=== PATIENT | female | born 1945 | race Caucasian/White ===

== ENCOUNTER → 2022-08-14 12:57 | Outpatient (BNVA) | payer MEDICARE, SELFPAY | PROVIDERS: Family Provider Family Medicine; PCP Family Medicine; Visit Provider Internal Medicine | DX: Z01.818 Encounter for other preprocedural examination (principal); I10 Essential (primary) hypertension; Z87.891 Personal history of nicotine dependence | CPT/HCPCS: 93005; 99203; 99204 ==

== ENCOUNTER 2024-06-12 14:14 | Emergency (ER) | payer MEDICARE, SELFPAY ==
[2024-06-12] VITALS (7 sets, daily range): BP systolic 114–163; BP diastolic 72–87; PULSE 79–113; RESP 16–17; TEMP 36.6; O2SAT 91–100; BMI 25.9
[2024-06-12] MEDS: sodium chloride 0.9% 1,000 ML 999 ML IV ×2 (16:04→17:25)
[2024-06-12] MEDS: ondansetron 2 mg/ML SDV 2 mL 8 MG IVP (16:05)
--- NOTE | 2024-06-12 16:12 | ED_ITS ---
HPI - Weakness 2 General: Chief complaint: Weakness Stated complaint: uti, n/v Time Seen by Provider: 06/12/24 15:23 History of Present Illness: 78-year-old female with a history of hyp ertension who presents to the emergency room with nausea and vomiting. Apparently she was treated for UTI couple of weeks ago and got better. Then she started getting sick again so she went back to the hospital and they said she had a UTI again. They sent her home with Levaquin. She took her first dose. She did this last night and they report she vomited all night. She has no focal abdominal tenderness. No altered mental status. No fevers. Review of Systems 2 Narrative: Constitutional symptoms: Negative except as documented in HPI. Skin symptoms: Negative except as documented in HPI. Eye symptoms: Negative except as documented in HPI. ENMT symptoms: Negative except as documented in HPI. Respiratory symptoms: Negative except as documented in HPI. Cardiovascular symptoms: Negative except as documented in HPI. Gastrointestinal symptoms: Negative except as documented in HPI. Genitourinary symptoms: Negative except as documented in HPI. Musculoskeletal symptoms: Negative except as documented in HPI. Neurologic symptoms: Negative except as documented in HPI. Psychiatric symptoms: Negative except as documented in HPI. Endocrine symptoms: Negative except as documented in HPI. PFSH ED 2 PFSH: Family History Father FH: coronary artery bypass surgery Social History Smoking and tobacco/nicotine status: former use of tobacco/nicotine Alcohol intake: current Physical Exam 2 Narrative: EXAM NARRATIVE: General: Alert, no acute distress. Skin: Warm, dry. Head: Normocephalic, atraumatic. Neck: Supple, trachea midline. Eye: Extraocular movements are intact. Ears, nose, mouth and throat: Dry oral mucosa Cardiovascular: Regular, Normal peripheral perfusion. Respiratory: Lungs are clear to auscultation, respirations are non-labored, breath sounds are equal, Symmetrical chest wall expansion. Gastrointestinal: Soft, Nontender, Non distended Musculoskeletal: Normal ROM, no deformity. Neurological: Alert and oriented, No focal neurological deficit observed. Psychiatric: Cooperative, appropriate mood & affect. Course 2 Vital Signs: Vital signs: Vital Signs Temperature 97.8 F 06/12/24 14:18 Pulse Rate 91 06/12/24 16:07 Respiratory Rate 17 06/12/24 16:07 Blood Pressure 115/72 06/12/24 16:07 Pulse Oximetry 98 06/12/24 16:07 Oxygen Delivery Me thod Room Air 06/12/24 16:07 MDM - Weakness Medical Decision Making Medical decision making: Differential diagnosis for this patient with nausea and vomiting including but not limited to and based on the above HPI, review of systems and physical exam: Urinary tract infection. Appendicitis. Cholecystis. colitis. small bowel obstruction. crohn's flare. pancreatitis. gastritis. peptic ulcer. cyclic vomiting. Viral illness. Influenza. COVID. - Workup - labwork and imaging ordered to evaluate, rule in and rule out above pathologies. Lab Review: Laboratory results were reviewed and interpreted by myself the emergency room physician. Patient does not have a leukocytosis. She does have mild elevation in her BUN/creatinine at 17 and 1.1. Sodium is little bit low at 129. All this could indicate that she is a bit dehydrated. She is received 2 L of fluid here. Urinalysis does indicate that she has a urinary tract infection. Nitrate negative but 5-10 whites and 1+ bacteria. I reviewed the patient's medical record. Reexamination: Patient says she feels quite a bit better. She is tolerating fluids. Patient remained stable. No increased work of breathing. No altered mental status. No focal motor deficits. Assessment and plan: Urinary tract infection Nausea and vomiting Dehydration ? 2 L normal saline bolus, IV Zofran and IV Rocephin. Changed her antibiotics to Omnicef. - Discharged home - Discussed plan with patient. Answered any questions. - Evaluation and treatment of this problem were appropriate in the emergency setting. Lab Data 06/12/24 16:05 06/12/24 16:05 Laboratory Results WBC 4.14 10^3/uL (3.29-11.43) 06/12/24 16:05 RBC 4.91 10^6/uL (3.85-5.65) 06/12/24 16:05 Hgb 15.00 g/dL (11.27-16.99) 06/12/24 16:05 Hct 45.1 % (36-47) 06/12/24 16:05 MCV 91.9 fl (85-98) 06/12/24 16:05 MCH 30.5 pg (27-33) 06/12/24 16:05 MCHC 33.3 g/dL (30-55) 06/12/24 16:05 RDW 13.3 % (12.1-15.1) 06/12/24 16:05 Plt Count 171 10^3/cmm (157-399) 06/12/24 16:05 MPV 9.9 fL (7.4-10.4) 06/12/24 16:05 Neut % (Auto) 77.7 % 06/12/24 16:05 Lymph % (Auto) 12.1 % 06/12/24 16:05 Fisher % (Auto) 9.2 % 06/12/24 16:05 Eos % (Auto) 0.0 % 06/12/24 16:05 Baso % (Auto) 0.5 % 06/12/24 16:05 Neut # (Auto) 3.22 10^3/uL (1.8-7.7) 06/12/24 16:05 Lymph # (Auto) 0.5 10^3/uL (0.8-4.8) L 06/12/24 16:05 Fisher # (Auto) 0.4 10^3/uL (0.2-0.9) 06/12/24 16:05 Eos # (Auto) 0.0 10^3/uL (0.0-0.8) 06/12/24 16:05 Baso # (Auto) 0.0 10^3/uL (0.0-0.1) 06/12/24 16:05 Nucleated RBC % (auto) 0 % 06/12/24 16:05 Nucleated RBCs # 0.0 /100WBC 06/12/24 16:05 Sodium 129 mmol/L (136-145) L 06/12/24 16:05 Potassium 4.5 mmol/L (3.5-5.1) 06/12/24 16:05 Chloride 92 mmol/L (98-107) L 06/12/24 16:05 Carbon Dioxide 23 mmol/L (22-29) 06/12/24 16:05 Anion Gap 18.5 (5-19) 06/12/24 16:05 BUN 17 mg/dL (8-23) 06/12/24 16:05 Creatinine 1.1 mg/dL (0.5-0.9) H 06/12/24 16:05 GFR Calculation Not Reportable 06/12/24 16:05 Glucose 123 mg/dL (65-115) H 06/12/24 16:05 Calculated Osmolality 271 mOsm/kg (285-295) L 06/12/24 16:05 Lactic Acid 1.4 mmol/L (0.5-2.2) 06/12/24 16:05 Calcium 9.3 mg/dL (8.5-10.5) 06/12/24 16:05 Total Bilirubin 1.0 mg/dL (0.15-1.2) 06/12/24 16:05 AST 117 U/L (0-32) H 06/12/24 16:05 ALT 121 U/L (0-33) H 06/12/24 16:05 Alkaline Phosphatase 277 U/L (35-105) H 06/12/24 16:05 C-Reactive Protein 44.5 mg/L (0.0-4.9) H 06/12/24 16:05 Total Protein 7.5 g/dL (6.6-8.7) 06/12/24 16:05 Albumin 3.8 g/dL (3.5-5.2) 06/12/24 16:05 Globulin 3.7 g/dL (1.3-4.6) 06/12/24 16:05 Lipase 20 U/L (13-60) 06/12/24 16:05 Procalcitonin 0.81 ng/mL (0-0.5) H 06/12/24 16:05 Urine Color Yellow (Yellow) 06/12/24 18:32 Urine Appearance Clear (CLEAR) 06/12/24 18:32 Urine pH 6.5 (5-7) 06/12/24 18:32 Ur Specific [place] 1.015 (1.005-1.030) 06/12/24 18:32 Urine Protein 1+ (Negative) H 06/12/24 18:32 Urine Glucose (UA) Norm (Normal) 06/12/24 18:32 Urine Ketones 1+ (Negative) H 06/12/24 18:32 Urine Blood Trace (Negative) H 06/12/24 18:32 Urine Nitrate Negative (Negative) 06/12/24 18:32 Urine Bilirubin 1+ (Negative) H 06/12/24 18:32 Urine Urobilinogen 4 mg/dL (Negative) H 06/12/24 18:32 Ur Leukocyte Esterase Trace (Negative) H 06/12/24 18:32 Urine RBC 0-4 /hpf (0-2) H 06/12/24 18:32 Urine WBC 5-10 /hpf (0-5) H 06/12/24 18:32 Ur Squamous Epith Cells 0-4 /hpf (0-5) H 06/12/24 18:32 Amorphous Sediment Not Reportable 06/12/24 18:32 Urine Bacteria 1+ /hpf (NONE) H 06/12/24 18:32 Urine Mucus 1+ /hpf 06/12/24 18:32 No radiology studies performed this visit Discharge Plan Discharge Patient Disposition: Home Clinical Impression: Urinary tract infection, Dehydration, Nausea and vomiting Condition: Stable Prescriptions: New ondansetron 8 mg tablet,disintegrating 8 mg PO .q6 PRN (Reason: nausea and vomiting) Qty: 14 0RF cefdinir 300 mg capsule 300 mg PO BID 7 Days Qty: 14 0RF No Action magnesium oxide 400 mg magnesium tablet 400 mg PO DAILY multivitamin [Daily-Vipul] Tablet 1 tab PO DAILY ibuprofen [Motrin IB] 200 mg tablet 600 mg PO Q8H PRN phentermine 37.5 mg capsule 37.5 mg PO BID PRN Rx Instructions: must administer 30 minutes before or 1-2 hours after breakfast metoprolol tartrate 25 mg tablet 12.5 mg PO BID Qty: 90 3RF Discharge Orders: Discharge ED (Routine); Ordered 06/12/24 Ordered By: Meghan Escalante Referrals: Benjie Ordonez Jr, MD [Family Provider] - 1-3 days (Please call for an appointment) Anahi Salinas DO [Primary Care Provider] - Discharge Diet: Advance as tolerated Discharge Activity: Increase activity as tolerated Patient Instructions: Urinary Tract Infection in Women (ED) Activity Restrictions/Additional Instructions: Thank you for choosing [facility] for your healthcare needs today. Please realize this is an emergency room and that we are providing you with a medical screening exam and this may not be complete and all inclusive of all the testing and or work up that you may need to determine your ailment or severity of your illness. You have been screened and evaluated and felt safe for discharge. Health conditions do change or evolve sometimes and as such it is important that you follow up with your Primary Doctor to be re checked, 3-5 days is a general good time frame for follow up. You are always welcome to return to the ED for re assessment if your symptoms are worsening or you have new concerns Coding Level of Care Code ED Chemist Internship for Cameron Venegas
[2024-06-12 16:19] LABS: Basophils % 0.5 %; Hematocrit 45.1 % (36-47); Lymphocytes # 0.5 10^3/uL (0.8-4.8); Lymphocytes % 12.1 %; Mean Corpuscular HGB Conc 33.3 g/dL (30-55); Mean Corpuscular Hemoglobin 30.5 pg (27-33); Mean Corpuscular Volume 91.9 fl (85-98); Mean Platelet Volume 9.9 fL (7.4-10.4); Monocytes # 0.4 10^3/uL (0.2-0.9); Monocytes % 9.2 %; Neutrophils # 3.22 10^3/uL (1.8-7.7); Neutrophils % 77.7 %; Nucleated Red Blood Cells % 0 %; Platelet Count 171 10^3/cmm (157-399); Red Blood Count 4.91 10^6/uL (3.85-5.65); Red Cell Distribution Width 13.3 % (12.1-15.1); White Blood Count 4.14 10^3/uL (3.29-11.43)
[2024-06-12 16:33] LABS: Alanine Aminotransferase 121 U/L (0-33); Albumin Level 3.8 g/dL (3.5-5.2); Alkaline Phosphatase 277 U/L (35-105); Anion Gap 18.5 (5-19); Aspartate Amino Transferase 117 U/L (0-32); Blood Urea Nitrogen 17 mg/dL (8-23); C Reactive Protein 44.5 mg/L (0.0-4.9); Calcium 9.3 mg/dL (8.5-10.5); Carbon Dioxide 23 mmol/L (22-29); Chloride 92 mmol/L (98-107); Creatinine Clr Calc Pharmacy 37.3869; Globulin 3.7 g/dL (1.3-4.6); Glucose 123 mg/dL (65-115); Lactic Sepsis W/Reflex 1.4 mmol/L (0.5-2.2); Lipase 20 U/L (13-60); Osmolality Calculated 271 mOsm/kg (285-295); Potassium 4.5 mmol/L (3.5-5.1); Sodium 129 mmol/L (136-145); Total Protein 7.5 g/dL (6.6-8.7)
[2024-06-12 16:39] LABS: Procalcitonin 0.81 ng/mL (0-0.5)
[2024-06-12 18:57] LABS: Bilirubin Urine 1+ (Negative); Blood Urine Trace (Negative); Glucose Urine UA Norm (Normal); Ketones Urine 1+ (Negative); Leukocyte Esterase Urine Trace (Negative); Nitrate Urine Negative (Negative); Protein Urine 1+ (Negative); Specific Gravity, Urine 1.015 (1.005-1.030); Urine Appearance Clear (CLEAR); Urine Color Yellow (Yellow); Urobilinogen Urine 4 mg/dL (Negative); pH Urine 6.5 (5-7)
[2024-06-12 18:58] LABS: Bacteria Urine 1+ /hpf; Mucus Urine 1+ /hpf; RBC Urine 0-4 /hpf (0-2); Squamous Epithelial Cell Urine 0-4 /hpf (0-5)
[2024-06-12] MEDS: cefTRIAXone 1,000 mg SDV 1000 MG IVP (20:07)
== END 2024-06-12 20:54 | disposition home or self-care (01) ==
PROVIDERS: Emergency Provider Emergency Medicine; Family Provider Family Medicine; PCP Family Medicine
DX: N39.0 Urinary tract infection, site not specified (principal); R11.2 Nausea with vomiting, unspecified; E86.0 Dehydration; Z87.891 Personal history of nicotine dependence
CPT/HCPCS: 80053; 81001; 83605; 83690; 84145; 85025; 86140; 87040; 96361; 96374; 96375; 99284; J0696; J2405; J7030

== ENCOUNTER 2024-06-14 20:31 | Inpatient (IN) | payer MEDICARE, SELFPAY ==
[2024-06-14 20:32] VITALS: BP 171/105; PULSE 105; RESP 16; TEMP 37; O2SAT 96; BMI 30.1
[2024-06-14 21:12] LABS: Bilirubin Urine Negative (Negative); Blood Urine Negative (Negative); Glucose Urine UA Negative (Normal); Ketones Urine Trace (Negative); Leukocyte Esterase Urine Negative (Negative); Nitrate Urine Negative (Negative); Protein Urine 2+ (Negative); Specific Gravity, Urine 1.014 (1.005-1.030); Urine Appearance Clear (CLEAR); Urine Color Dark Yellow (Yellow)
[2024-06-14 21:17] LABS: Bacteria Urine None Seen /hpf; Hyaline Casts Urine 4.11 /lpf; RBC Urine 0-2 /hpf (0-2); Squamous Epithelial Cell Urine 0-5 /hpf (0-5); WBC Urine 0-5 /hpf (0-5)
[2024-06-14 21:19] LABS: Amphetamines Screen Urine Positive (Negative); Barbiturates Screen Urine Negative (Negative); Benzodiazepines Screen Urine Negative (Negative); Cocaine Screen Urine Negative (Negative); Opiate Screen Urine Negative (Negative); PCP Screen Urine Negative (Negative); THC Screen Urine Negative (Negative)
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
--- NOTE | 2024-06-14 23:02 | CTR_ITS ---
PROCEDURE INFORMATION: Exam: CT Head Without Contrast Exam date and time: 06/14/2024 11:53 PM Age: 78 years old Clinical indication: Altered mental status/memory loss; Confusion or disorientation; Additional info: AMS TECHNIQUE: Imaging protocol: Computed tomography of the head without contrast. Radiation optimization: All CT scans at this facility use at least one of these dose optimization techniques: automated exposure control; mA and/or kV adjustment per patient size (includes targeted exams where dose is matched to clinical indication); or iterative reconstruction. COMPARISON: No relevant prior studies available. RADIATION DOSE METRICS: Total DLP (mGy-cm): 941.38 FINDINGS: Brain: No acute intracranial hemorrhage or territorial infarction. No mass effect or midline shift. 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 Cerebral ventricles: No ventriculomegaly. Paranasal sinuses: Visualized sinuses are unremarkable. No fluid levels. Mastoid air cells: Visualized mastoid air cells are well aerated. Bones: Unremarkable. No acute fracture. Soft tissues: Unremarkable. CT/CT head wo con* [id number] IMPRESSION: 1. No acute intracranial findings. 2. 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
--- NOTE | 2024-06-14 23:02 | XRR_ITS ---
PROCEDURE INFORMATION: Exam: XR Chest Exam date and time: 06/14/2024 11:09 PM Age: 78 years old Clinical indication: Other: AMS TECHNIQUE: Imaging protocol: Radiologic exam of the chest. Views: 1 view. COMPARISON: No relevant prior studies available. FINDINGS: Lungs: The lungs are adequately expanded. No focal consolidations or pulmonary edema. Mild left basilar atelectasis. Pleural spaces: Blunting of the bilateral costophrenic angles may represent trace bilateral pleural effusions. No pneumothorax. Heart/Mediastinum: No cardiomegaly. Bones/joints: No acute fractures. Chronic right rib deformities. Degenerative changes of the bilateral shoulders. XR/XR chest 1V portable [id number] IMPRESSION: Mild left basilar atelectasis. Blunting of the bilateral costophrenic angles may represent trace bilateral pleural effusions.
--- NOTE | 2024-06-14 23:02 | ECG_ITS ---
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 Measurements Intervals [place] Rate: 109 P: 38 MI: 154 QRS: -30 QRSD: 97 T: 86 QT: 316 QTc: 427 Interpretive Statements SINUS TACHYCARDIA POSSIBLE LEFT ATRIAL ENLARGEMENT [-0.1mV P-WAVE IN V1/V2] BORDERLINE LEFT AXIS DEVIATION [QRS AXIS < -20] LEFT VENTRICULAR HYPERTROPHY AND ST-T CHANGE [VOLTAGE CRITERIA PLUS ST/T ABNORMALITY] No previous ECG available for comparison Electronically Signed On 06-15-2024 6:28:10 CDT by Pilar Heard M.D. [id number]
[2024-06-14 23:56] LABS: Lactic Sepsis W/Reflex 1.4 mmol/L (0.5-2.2)
[2024-06-15] VITALS (7 sets, daily range): BP systolic 128–182; BP diastolic 73–96; PULSE 83–105; RESP 15–19; TEMP 36.7–37.3; O2SAT 90–96; BMI 30.6
[2024-06-15 00:07] LABS: Thyroid Stimulating Hormone 1.36 uIU/mL (0.27-4.20)
[2024-06-15 00:23] LABS: Acetaminophen < 5.0 ug/mL (10-30); Alanine Aminotransferase 94 U/L (0-33); Albumin Level 3.4 g/dL (3.5-5.2); Alcohol Level < 10 mg/dL (0-10); Alkaline Phosphatase 468 U/L (35-105); Anion Gap 14.6 (5-19); Aspartate Amino Transferase 106 U/L (0-32); Blood Urea Nitrogen 18 mg/dL (8-23); C Reactive Protein 57.9 mg/L (0.0-4.9); Calcium 8.4 mg/dL (8.5-10.5); Carbon Dioxide 22 mmol/L (22-29); Chloride 96 mmol/L (98-107); Creatine Phosphokinase 56 U/L (26-192); Creatinine Clr Calc Pharmacy 32.9533; Globulin 2.9 g/dL (1.3-4.6); Glucose 116 mg/dL (65-115); Magnesium 1.7 mg/dL (1.7-2.3); Osmolality Calculated 271 mOsm/kg (285-295); Phosphorus 2.8 mg/dL (2.5-4.5); Potassium 3.6 mmol/L (3.5-5.1); Salicylate < 0.3 mg/dL (3-10); Sodium 129 mmol/L (136-145); Total Protein 6.3 g/dL (6.6-8.7)
[2024-06-15 00:25] LABS: Basophils % 0.4 %; Lymphocytes # 0.9 10^3/uL (0.8-4.8); Lymphocytes % 33.9 %; Mean Corpuscular HGB Conc 34.9 g/dL (30-55); Mean Corpuscular Hemoglobin 31.2 pg (27-33); Mean Corpuscular Volume 89.6 fl (85-98); Mean Platelet Volume 11.7 fL (7.4-10.4); Monocytes # 0.2 10^3/uL (0.2-0.9); Monocytes % 6.6 %; Neutrophils # 1.51 10^3/uL (1.8-7.7); Neutrophils % 58.7 %; Nucleated Red Blood Cells % 0 %; Platelet Count 85 10^3/cmm (157-399); Red Blood Count 4.13 10^6/uL (3.85-5.65); Red Cell Distribution Width 13.8 % (12.1-15.1); Slide Review Slide Review Perform; White Blood Count 2.57 10^3/uL (3.29-11.43)
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
--- NOTE | 2024-06-15 02:35 | US_ITS ---
WS: [id number] Complete ABDOMINAL ULTRASOUND HISTORY: r/o liver disease COMPARISON: None available. Liver: 12.3 cm in length. Small caliber liver. Surface of the liver is very slightly nodular suggesti ng early changes of cirrhosis. No mass. Portal Vein: Normal hepatopetal flow with monophasic waveform. Gallbladder: Diffuse gallbladder contraction due to nonfasting state. No stones are identified. No sl udge. CBD: 0.6 cm Pancreas: Normal size and echogenicity. Right kidney: 8.1 cm x 5.0 x 4.5 cm. Cortex:1.5 cm. Normal size and echogenicity. No hydronephrosis or mass. Left kidney: 7.6 cm x 4.8 cm x 3.7 cm. Cortex: 1.0 cm. Normal size and echogenicity. No hydronephrosis or mass. Spleen: 10.5 cm. Normal size and echogenicity. Aorta and IVC: Mild atherosclerosis aorta. US/US abdomen complete* [id number] Impression: 1. Contracted gallbladder with wall thickening. Nonfasting examination. No sto anthony identified. 2. Small caliber liver. Surface of the liver is very slightly nodular which ca n be seen with cirrhosis. 3. No renal obstruction.
[2024-06-15] MEDS: sodium chloride 0.9% 1,000 ML 125 ML IV ×2 (02:45→12:09)
[2024-06-15] MEDS: piperacillin-tazobactam 3.375 GM in sodium chloride 0.9% (plus) 50 ML IV ×3 (02:54→19:18)
[2024-06-15 03:35] LABS: INR 0.97 (0.8-1.2)
[2024-06-15 03:44] LABS: Ammonia 25 umol/L (11-51); Lactic Sepsis W/Reflex 1.1 mmol/L (0.5-2.2)
[2024-06-15 03:54] LABS: Anion Gap 14.8 (5-19); Blood Urea Nitrogen 18 mg/dL (8-23); Calcium 8.3 mg/dL (8.5-10.5); Carbon Dioxide 20 mmol/L (22-29); Chloride 98 mmol/L (98-107); Creatinine Clr Calc Pharmacy 39.5877; Glucose 104 mg/dL (65-115); Osmolality Calculated 270 mOsm/kg (285-295); Potassium 3.8 mmol/L (3.5-5.1); Sodium 129 mmol/L (136-145); Thyroid Stimulating Hormone 0.89 uIU/mL (0.27-4.20)
[2024-06-15 04:13] LABS: Hepatitis A Antibody IgM Non-Reactive (Nonreactive); Hepatitis B Core AB, Total Non-Reactive (Nonreactive); Hepatitis B Surface AB < 3.5 (11.5-1000); Hepatitis B Surface Antigen Non-Reactive (Nonreactive)
[2024-06-15 04:13] LABS: Urine Random Sodium 95 mmol/L
[2024-06-15 07:09] LABS: Blood Urea Nitrogen 17 mg/dL (8-23); Calcium 7.9 mg/dL (8.5-10.5); Carbon Dioxide 20 mmol/L (22-29); Chloride 98 mmol/L (98-107); Creatinine Clr Calc Pharmacy 44.2098; Glucose 136 mg/dL (65-115); Osmolality Calculated 272 mOsm/kg (285-295); Sodium 129 mmol/L (136-145)
[2024-06-15 07:15] LABS: Anion Gap 14.6 (5-19); Potassium 3.6 mmol/L (3.5-5.1)
[2024-06-15 09:01] LABS: Hepatitis C Virus Antibody Non-Reactive (Nonreactive)
[2024-06-15] MEDS: vancomycin 750 MG in sodium chloride 0.9% 250 ML 250 MG IV (10:15)
[2024-06-15 11:11] LABS: Hematocrit 35.4 % (36-47); Mean Corpuscular HGB Conc 34.2 g/dL (30-55); Mean Corpuscular Hemoglobin 30.6 pg (27-33); Mean Corpuscular Volume 89.6 fl (85-98); Platelet Count 75 10^3/cmm (157-399); Red Blood Count 3.95 10^6/uL (3.85-5.65); Red Cell Distribution Width 13.8 % (12.1-15.1); White Blood Count 3.01 10^3/uL (3.29-11.43)
[2024-06-15 11:26] LABS: Gamma Glutamyl Transferase 406 U/L (5-36)
[2024-06-15 11:38] LABS: Estmated Average Glucose 111; Hemoglobin A1C 5.5 % (4.0-6.0)
[2024-06-15 11:47] LABS: HIV 1 & 2 Antibody Non-Reactive (Non-Reactiv); HIV 1 & 2 Antigen Non-Reactive (Non-Reactiv)
[2024-06-15 11:51] LABS: Total Cells Counted 100 (0-100)
[2024-06-15 12:01] LABS: Absolute Neutrophil 2.1 10^3/cmm (1.4-6.5); Absolute Segmented Neutrophil 1.6 10/cmm (1.6-7.1); Band Neutrophils Absolute 0.5 10^3/cmm (0.0-1.2); Eosinophils 0 %; Lymphocytes 20 %; Lymphocytes Absolute 0.8 10^3/cmm (1.2-3.4); Monocytes Absolute 0.1 10^3/cmm (0.1-0.6); Platelet Estimate Decreased (Normal); Segmented Neutrophils 53 %
[2024-06-15 12:02] LABS: Smudge Cells 1+
[2024-06-15 12:40] LABS: Anion Gap 14.8 (5-19); Blood Urea Nitrogen 14 mg/dL (8-23); Carbon Dioxide 19 mmol/L (22-29); Chloride 100 mmol/L (98-107); Creatinine Clr Calc Pharmacy 40.1907; Glucose 97 mg/dL (65-115); Osmolality Calculated 270 mOsm/kg (285-295); Potassium 3.8 mmol/L (3.5-5.1); Sodium 130 mmol/L (136-145)
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
[2024-06-15 14:51] LABS: LAB Peripheral Smear Sent for Review
[2024-06-15 15:16] LABS: Anion Gap 13.5 (5-19); Blood Urea Nitrogen 14 mg/dL (8-23); Calcium 7.8 mg/dL (8.5-10.5); Carbon Dioxide 20 mmol/L (22-29); Chloride 99 mmol/L (98-107); Creatinine Clr Calc Pharmacy 44.2098; Glucose 119 mg/dL (65-115); Osmolality Calculated 270 mOsm/kg (285-295); Potassium 3.5 mmol/L (3.5-5.1); Sodium 129 mmol/L (136-145)
[2024-06-15 15:32] LABS: Folate Level 13.6 ng/mL (4.8-37.3)
[2024-06-15 15:33] LABS: Vitamin B12 997 pg/mL (232-1245)
[2024-06-15 18:49] LABS: Anion Gap 12.3 (5-19); Blood Urea Nitrogen 13 mg/dL (8-23); Calcium 7.8 mg/dL (8.5-10.5); Carbon Dioxide 21 mmol/L (22-29); Chloride 103 mmol/L (98-107); Creatinine Clr Calc Pharmacy 44.2098; Glucose 136 mg/dL (65-115); Osmolality Calculated 278 mOsm/kg (285-295); Potassium 3.3 mmol/L (3.5-5.1); Sodium 133 mmol/L (136-145)
[2024-06-15] MEDS: sodium chloride 0.9% 1,000 ML 75 ML IV (21:41)
[2024-06-15 23:07] LABS: Blood Urea Nitrogen 12 mg/dL (8-23); Calcium 7.7 mg/dL (8.5-10.5); Carbon Dioxide 21 mmol/L (22-29); Chloride 105 mmol/L (98-107); Creatinine Clr Calc Pharmacy 44.2098; Glucose 107 mg/dL (65-115); Osmolality Calculated 282 mOsm/kg (285-295); Sodium 136 mmol/L (136-145)
[2024-06-16] VITALS (9 sets, daily range): BP systolic 133–165; BP diastolic 73–89; PULSE 70–93; RESP 14–19; TEMP 36.5–37.3; O2SAT 90–93
[2024-06-16] MEDS: piperacillin-tazobactam 3.375 GM in sodium chloride 0.9% (plus) 50 ML IV ×3 (04:13→20:48)
[2024-06-16 04:54] LABS: Basophils % 0.5 %; Eosinophils % 0.3 %; Hematocrit 32.4 % (36-47); Mean Corpuscular HGB Conc 33.3 g/dL (30-55); Mean Corpuscular Hemoglobin 30.7 pg (27-33); Mean Platelet Volume 11.8 fL (7.4-10.4); Monocytes # 0.3 10^3/uL (0.2-0.9); Monocytes % 6.8 %; Neutrophils # 1.48 10^3/uL (1.8-7.7); Neutrophils % 38.9 %; Nucleated Red Blood Cells % 0 %; Platelet Count 77 10^3/cmm (157-399); Red Blood Count 3.52 10^6/uL (3.85-5.65); Red Cell Distribution Width 14.2 % (12.1-15.1); White Blood Count 3.81 10^3/uL (3.29-11.43)
[2024-06-16 05:22] LABS: Alanine Aminotransferase 61 U/L (0-33); Alkaline Phosphatase 376 U/L (35-105); Anion Gap 14.6 (5-19); Aspartate Amino Transferase 64 U/L (0-32); Blood Urea Nitrogen 11 mg/dL (8-23); Calcium 7.9 mg/dL (8.5-10.5); Carbon Dioxide 19 mmol/L (22-29); Chloride 107 mmol/L (98-107); Globulin 2.4 g/dL (1.3-4.6); Glucose 94 mg/dL (65-115); Magnesium 1.7 mg/dL (1.7-2.3); Osmolality Calculated 283 mOsm/kg (285-295); Potassium 3.6 mmol/L (3.5-5.1); Sodium 137 mmol/L (136-145); Total Bilirubin 0.5 mg/dL (0.15-1.2); Total Protein 5.4 g/dL (6.6-8.7)
[2024-06-16 05:47] LABS: Slide Review Slide Review Perform
[2024-06-16 06:01] LABS: Procalcitonin 0.71 ng/mL (0-0.5)
[2024-06-16] MEDS: sodium chloride 0.9% 1,000 ML 75 ML IV (11:12)
[2024-06-16] MEDS: metoprolol tartrate 25 mg Tablet 12.5 MG PO ×2 (11:16→21:53)
[2024-06-16 11:28] LABS: Reflex FDPQ test REFLEX FDP QUEST TES
[2024-06-16 11:34] LABS: Lactate Dehydrogenase 331 U/L (135-214)
[2024-06-16 11:39] LABS: Erythrocyte Sedimentation Rate 9 mm/hr (0-15)
[2024-06-16 11:41] LABS: Acetaminophen < 5.0 ug/mL (10-30); Alcohol Level < 10 mg/dL (0-10); Salicylate < 0.3 mg/dL (3-10)
[2024-06-16 11:46] LABS: INR 0.94 (0.8-1.2)
[2024-06-16 11:47] LABS: Fibrinogen 330 mg/dL (174-498); Partial Thromboplastin Time 28.2 SECONDS (23.9-36.7)
[2024-06-16 11:50] LABS: D Dimer 2.32 ug/mLFEU (0-0.59)
--- NOTE | 2024-06-16 14:42 | PC.NURSE ---
The following people are approved visitors for patient: Angelita Gomez
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
[2024-06-17] MEDS: sodium chloride 0.9% 1,000 ML 75 ML IV (00:53)
[2024-06-17] MEDS: piperacillin-tazobactam 3.375 GM in sodium chloride 0.9% (plus) 50 ML IV (03:46)
[2024-06-17 04:00] VITALS: BP 174/92; PULSE 78; RESP 17; TEMP 36.7; O2SAT 90
[2024-06-17 05:25] LABS: Basophils # 0.1 10^3/uL (0.0-0.1); Basophils % 1.1 %; Eosinophils % 0.5 %; Hematocrit 34.4 % (36-47); Lymphocytes # 4.8 10^3/uL (0.8-4.8); Lymphocytes % 58.3 %; Mean Corpuscular HGB Conc 32.6 g/dL (30-55); Mean Corpuscular Hemoglobin 30.1 pg (27-33); Mean Corpuscular Volume 92.5 fl (85-98); Mean Platelet Volume 11.1 fL (7.4-10.4); Monocytes # 0.4 10^3/uL (0.2-0.9); Monocytes % 4.7 %; Neutrophils # 2.87 10^3/uL (1.8-7.7); Neutrophils % 35.2 %; Nucleated Red Blood Cells % 0 %; Platelet Count 118 10^3/cmm (157-399); Red Blood Count 3.72 10^6/uL (3.85-5.65); Red Cell Distribution Width 14.5 % (12.1-15.1); White Blood Count 8.16 10^3/uL (3.29-11.43)
[2024-06-17 05:47] LABS: Alanine Aminotransferase 56 U/L (0-33); Albumin Level 3.1 g/dL (3.5-5.2); Alkaline Phosphatase 358 U/L (35-105); Anion Gap 14.8 (5-19); Aspartate Amino Transferase 55 U/L (0-32); Blood Urea Nitrogen 9 mg/dL (8-23); C Reactive Protein 37.2 mg/L (0.0-4.9); Calcium 8.4 mg/dL (8.5-10.5); Carbon Dioxide 21 mmol/L (22-29); Chloride 108 mmol/L (98-107); Creatinine Clr Calc Pharmacy 58.4753; Globulin 2.6 g/dL (1.3-4.6); Glucose 110 mg/dL (65-115); Magnesium 1.8 mg/dL (1.7-2.3); Osmolality Calculated 289 mOsm/kg (285-295); Phosphorus 2.4 mg/dL (2.5-4.5); Potassium 3.8 mmol/L (3.5-5.1); Sodium 140 mmol/L (136-145); Total Bilirubin 0.5 mg/dL (0.15-1.2); Total Protein 5.7 g/dL (6.6-8.7)
[2024-06-17 05:51] LABS: Slide Review Slide Review Perform
[2024-06-17 05:52] LABS: Procalcitonin 0.48 ng/mL (0-0.5)
[2024-06-17 06:00] VITALS: PULSE 75
[2024-06-17 07:44] VITALS: BP 183/90; PULSE 82; RESP 14; TEMP 36.4; O2SAT 91
[2024-06-17] MEDS: metoprolol tartrate 25 mg Tablet 12.5 MG PO (08:28)
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
[2024-06-17 11:36] VITALS: BP 185/96; PULSE 83; RESP 17; TEMP 36.4; O2SAT 91
[2024-06-17 11:48] VITALS: BP 185/96; PULSE 83; RESP 17; TEMP 36.4; O2SAT 91
[2024-06-17 13:44] LABS: CENTROMERE B ANTIBODY <1.0 NEG AI (<1.0 NEG); JO-1 ANTIBODY <1.0 NEG AI (<1.0 NEG); RNP ANTIBODY <1.0 NEG AI (<1.0 NEG); SCL-70 ANTIBODY <1.0 NEG AI (<1.0 NEG); SJOGREN'S ANTIBODY (SS-A) <1.0 NEG AI (<1.0 NEG); SM ANTIBODY <1.0 NEG AI (<1.0 NEG); SS-B <1.0 NEG AI (<1.0 NEG)
[2024-06-17 14:43] LABS: COMPLEMENT, TOTAL (CH50) 58 U/mL (31-60)
[2024-06-17 14:43] LABS: Osmolality Serum 271 mOsm/kg (278-305)
[2024-06-17 15:14] LABS: COMPLEMENT COMPONENT C3C 99 mg/dL (83-193); COMPLEMENT COMPONENT C4C 26 mg/dL (15-57)
[2024-06-17 15:18] LABS: Osmolality Urine 417 mOsm/kg (50-1200)
[2024-06-17 15:29] LABS: ANA SCREEN, IFA NEGATIVE (NEGATIVE)
[2024-06-20 09:30] LABS: THYROID PEROXIDASE ANTIBODIES 2 IU/mL (<9)
[2024-06-21 12:09] LABS: Amphetamine 460 ng/mL; Methamphetamine 1000 ng/mL; Methylenedioxyamphetamine negative; Methylenedioxyethylamphetamine negative; Methylenedioxymethamphetamine negative
[2024-06-23 06:04] LABS: Fibrinogen Degradation Product <5 mcg/mL (LESS THAN 5)
== END 2024-06-17 11:55 | disposition home or self-care (01) | DRG 923 ==
LOC: ER 06-15 01:18 → MEDSURG 06-15 01:24
PROVIDERS: Physician Assistant; Admitting Provider Internal Medicine; Emergency Provider Emergency Medicine; PCP Family Medicine; Visit Provider Family Medicine
DX: T76.21XA Adult sexual abuse, suspected, initial encounter (principal); E87.1 Hypo-osmolality and hyponatremia; N17.9 Acute kidney failure, unspecified; R41.82 Altered mental status, unspecified; F15.10 Other stimulant abuse, uncomplicated; I10 Essential (primary) hypertension; R74.8 Abnormal levels of other serum enzymes; D69.6 Thrombocytopenia, unspecified; E86.0 Dehydration; K81.9 Cholecystitis, unspecified; F41.9 Anxiety disorder, unspecified; Z87.891 Personal history of nicotine dependence
CPT/HCPCS: 36415; 70450; 71045; 71250; 74176; 76700; 80048; 80053; 80306; 80307; 80324; 80359; 80503; 81001; 82140; 82550; 82607; 82746; 82977; 83010; 83036; 83605; 83615; 83690; 83735; 83930; 83935; 84100; 84145; 84300; 84443; 85007; 85025; 85027; 85362; 85378; 85384; 85610; 85651; 85730; 86140; 86160; 86162; 86235; 86255; 86376; 86705; 86706; 86709; 86803; 87040; 87340; 87806; 93005; 96361; 96374; 96375; 97116; 97161; 97167; 97530; 97535; 99284; J0696; J2405; J2543; J3370; J7030; J7050